=== PATIENT | male | born 1940 | race Caucasian/White ===

== ENCOUNTER 2017-06-19 05:57 | Inpatient (IN) | payer MEDICARE ==
[~2017-06-19] VITALS: Ht 182.9 cm; Wt 81.0 kg
[2017-06-19] MEDS ORDERED: ALBUTEROL SULF 2.5 MG/0.5ML(0.5%) NEB SOLN HHN STA (06:08)
[2017-06-19] MEDS ORDERED: IPRATROPIUM BROM 0.5 MG/2.5ML INH SOL NEB ONE (06:15)
[2017-06-19] MEDS ORDERED: methylPREDNISolone SOD SUCC 125 MG/2 ML VL IV ONE (06:45)
[2017-06-19 06:56] LABS: Basophils # (auto) 0.1 uL; Mean Corpuscular Volume 102.2 fL (80.0-100.0); Monocytes # (auto) 1.4 uL; Red Cell Distribution Width 16.1 % (11.8-14.3)
[2017-06-19 06:58] LABS: Basophils % (auto) 0.6 % (0.0-2.0); Eosinophils # (auto) 0 uL; Eosinophils % (auto) 0.2 % (0.0-7.0); Hematocrit 48.5 % (41.0-53.0); Hemoglobin 15.5 g/dL (13.5-17.5); Lymphocytes # (auto) 0.5 uL; Mean Corpuscular Hemoglobin 32.6 pg (28.0-32.0); Mean Corpuscular Hgb Conc. 31.9 g/dL (32.0-36.0); Monocytes % (auto) 7.6 % (0.0-12.0); Neutrophils % (auto) 88.6 % (37.0-80.0); Nucleated Red Blood Cells % 0.1 %; Platelet Count (auto) 228 10^3/uL (140-450); Red Blood Cells 4.74 10^6/uL (4.5-5.90)
[2017-06-19 07:29] LABS: Albumin 3.2 g/dL (3.4-5.0); Calcium 8.3 mg/dL (8.5-10.1); Potassium 5.1 mmol/L (3.5-5.1)
[2017-06-19 07:34] LABS: Bilirubin, Total 0.5 mg/dL (0.2-1.0); Total Protein 8.3 g/dL (6.4-8.2)
[2017-06-19] MEDS ORDERED: LACTULOSE 20Gm/30ML SOLN PO PRN (08:45)
[2017-06-19] MEDS ORDERED: AZITHROMYCIN 500MG/ 250ML 250 ML IV ONE (08:45)
[2017-06-19] MEDS ORDERED: NITROGLYCERIN 0.4 MG SL TAB SL PRN (08:45)
[2017-06-19] MEDS ORDERED: ASPirin 81 mg TAB PO ONE (08:45)
[2017-06-19] MEDS ORDERED: FUROSEMIDE 40 MG/4 ML VIAL IV ONE (08:45)
[2017-06-19] MEDS ORDERED: cefTRIAXone 1GM/10ml IVPUSH 10 ML IV ONE (08:45)
[2017-06-19] MEDS ORDERED: MORPHINE SULF INJ 2 MG/ML SYRINGE 1ML IV PRN (08:45)
[2017-06-19 09:33] LABS: Cholesterol 117 mg/dL (< 200); HDL Cholesterol 57 mg/dL (40-59); LDL Cholesterol 64 mg/dL (< 100); Triglycerides 69 mg/dL (< 150)
[2017-06-19] MEDS: IPRATROPIUM BROM 0.5 MG/2.5ML INH SOL NEB SCH ×4 (09:57→22:21)
[2017-06-19] MEDS: ALBUTEROL SULF 2.5 MG/0.5ML(0.5%) NEB SOLN NEB SCH ×2 (09:57→13:39)
[2017-06-19] MEDS ORDERED: ENALAPRIL MALEATE 10 MG TAB PO SCH (10:00)
[2017-06-19] MEDS ORDERED: METOPROLOL TARTRATE 25 MG TAB PO SCH (10:00)
[2017-06-19] MEDS: PANTOPRAZOLE 40 MG/10 ML VIAL IV SCH (10:13)
[2017-06-19] MEDS ORDERED: FUROSEMIDE 100 MG/10ML VIAL IV ONE (11:30)
[2017-06-19] MEDS: ENOXAPARIN SOD 30 MG/0.3 ML SYRINGE SC SCH (12:47)
[2017-06-19] MEDS ORDERED: METOLAZONE 5 MG TAB PO ONE (14:15)
[2017-06-19 14:18] VITALS: BP 158/108
[2017-06-19] MEDS ORDERED: MORPHINE SULFATE 4 MG/ML SYR/VIAL ONE (14:37)
[2017-06-19] MEDS ORDERED: ONDANSETRON HCL 4 MG/2 ML VIAL ONE (14:38)
[2017-06-19] MEDS ORDERED: LIDOCAINE 2% JELLY 11ml (GLYDO) ONE ×2 (14:48→15:02)
[2017-06-19] MEDS: SODIUM CHLOR 0.9% PF (SALINE LOCK) 10ML VIAL IV SCH ×2 (15:59→22:01)
[2017-06-19] MEDS ORDERED: SODIUM BICARBONATE 8.4 % INJ 50ML VIAL IV ONE (16:30)
[2017-06-19] MEDS ORDERED: HALOPERIDOL LACTATE 5 MG/ML INJ VIAL ONE (17:00)
[2017-06-19] MEDS ORDERED: HALOPERIDOL LACTATE 5 MG/ML INJ VIAL IM ONE (17:15)
[2017-06-19] MEDS ORDERED: methylPREDNISolone SOD SUCC 40 MG/ML VL IV SCH (19:00)
[2017-06-19] MEDS ORDERED: SUCCINYLCHOLINE CHLORIDE 20 MG/ML 10ML VIAL IV ONE ×2 (19:03→19:15)
[2017-06-19] MEDS ORDERED: ETOMIDATE (2MG/ML) 20ML VIAL IV ONE ×2 (19:03→19:15)
[2017-06-19] MEDS: MIDAZOLAM DRIP 50 mg/50mL 50 ML IV SCH ×2 (19:38→22:41)
[2017-06-19 19:45] VITALS: BP 147/122
[2017-06-19 20:02] VITALS: BP 97/69
[2017-06-19 21:48] VITALS: BP 109/75
[2017-06-19] MEDS: ATORVASTATIN 20 MG TAB PO SCH (22:00)
[2017-06-20] VITALS (19 sets, daily range): BP systolic 94–139; BP diastolic 63–93
[2017-06-20] MEDS: IPRATROPIUM BROM 0.5 MG/2.5ML INH SOL NEB SCH ×6 (02:17→22:00)
[2017-06-20 05:16] LABS: Basophils # (auto) 0 uL; Eosinophils # (auto) 0 uL; Hematocrit 41.4 % (41.0-53.0); Hemoglobin 13.5 g/dL (13.5-17.5); Lymphocytes # (auto) 0.5 uL; Lymphocytes % (auto) 3.4 % (10.0-50.0); Mean Corpuscular Hemoglobin 32.4 pg (28.0-32.0); Mean Corpuscular Hgb Conc. 32.6 g/dL (32.0-36.0); Mean Corpuscular Volume 99.3 fL (80.0-100.0); Monocytes # (auto) 1.6 uL; Neutrophils # (auto) 13.5 uL; Neutrophils % (auto) 86.6 % (37.0-80.0); Nucleated Red Blood Cells % 0.2 %; Platelet Count (auto) 195 10^3/uL (140-450); Red Blood Cells 4.17 10^6/uL (4.5-5.90); Red Cell Distribution Width 15.6 % (11.8-14.3); White Blood Cell 15.7 10^3/uL (4.4-10.8)
[2017-06-20] MEDS: SODIUM CHLOR 0.9% PF (SALINE LOCK) 10ML VIAL IV SCH ×3 (05:34→22:15)
[2017-06-20 05:37] LABS: Albumin 2.5 g/dL (3.4-5.0); Bilirubin, Total 0.7 mg/dL (0.2-1.0); Calcium 7.7 mg/dL (8.5-10.1); Potassium 4.5 mmol/L (3.5-5.1); Total Protein 6.6 g/dL (6.4-8.2)
[2017-06-20] MEDS: AZITHROMYCIN 500MG/ 250ML 250 ML IV SCH (09:44)
[2017-06-20] MEDS: PANTOPRAZOLE 40 MG/10 ML VIAL IV SCH (09:44)
[2017-06-20] MEDS: cefTRIAXone 1GM/10ml IVPUSH 10 ML IV SCH (09:44)
[2017-06-20] MEDS: ENOXAPARIN SOD 30 MG/0.3 ML SYRINGE SC SCH (09:44)
[2017-06-20] MEDS: ASPirin 81 mg TAB PO SCH (09:44)
[2017-06-20] MEDS ORDERED: LEVOTHYROXINE SODIUM 25 MCG TAB NG ONE (11:30)
[2017-06-20] MEDS ORDERED: FUROSEMIDE 100 MG/10ML VIAL IV ONE (11:45)
[2017-06-20] MEDS: PROPOFOL 100 ML IV SCH (21:58)
[2017-06-20] MEDS: ATORVASTATIN 20 MG TAB PO SCH (23:00)
[2017-06-20] MEDS: MIDAZOLAM DRIP 50 mg/50mL 50 ML IV SCH (23:45)
[2017-06-21] VITALS (102 sets, daily range): BP systolic 83–141; BP diastolic 40–93
[2017-06-21] MEDS: IPRATROPIUM BROM 0.5 MG/2.5ML INH SOL NEB SCH ×6 (02:17→22:43)
[2017-06-21] MEDS: MIDAZOLAM DRIP 50 mg/50mL 50 ML IV SCH ×2 (03:10→16:42)
[2017-06-21 04:45] LABS: Basophils # (auto) 0.1 uL; Basophils % (auto) 0.4 % (0.0-2.0); Eosinophils # (auto) 0 uL; Eosinophils % (auto) 0.1 % (0.0-7.0); Hematocrit 46.2 % (41.0-53.0); Hemoglobin 15.6 g/dL (13.5-17.5); Lymphocytes # (auto) 0.7 uL; Lymphocytes % (auto) 4.7 % (10.0-50.0); Mean Corpuscular Hemoglobin 33.3 pg (28.0-32.0); Mean Corpuscular Hgb Conc. 33.7 g/dL (32.0-36.0); Mean Corpuscular Volume 98.8 fL (80.0-100.0); Monocytes # (auto) 1.6 uL; Monocytes % (auto) 10.2 % (0.0-12.0); Neutrophils # (auto) 13.2 uL; Neutrophils % (auto) 84.6 % (37.0-80.0); Nucleated Red Blood Cells % 0.1 %; Platelet Count (auto) 206 10^3/uL (140-450); Red Blood Cells 4.68 10^6/uL (4.5-5.90); Red Cell Distribution Width 15.2 % (11.8-14.3); White Blood Cell 15.6 10^3/uL (4.4-10.8)
[2017-06-21 04:59] LABS: Albumin 2.6 g/dL (3.4-5.0); BUN/Creatinine Ratio 27.3; Bilirubin, Total 0.8 mg/dL (0.2-1.0); Calcium 8.2 mg/dL (8.5-10.1); Potassium 3.9 mmol/L (3.5-5.1); Total Protein 7.1 g/dL (6.4-8.2)
[2017-06-21] MEDS: LEVOTHYROXINE SODIUM 25 MCG TAB NG SCH (06:24)
[2017-06-21] MEDS: SODIUM CHLOR 0.9% PF (SALINE LOCK) 10ML VIAL IV SCH ×3 (06:24→22:03)
[2017-06-21] MEDS: cefTRIAXone 1GM/10ml IVPUSH 10 ML IV SCH (09:51)
[2017-06-21] MEDS: PANTOPRAZOLE 40 MG/10 ML VIAL IV SCH (09:52)
[2017-06-21] MEDS: AZITHROMYCIN 500MG/ 250ML 250 ML IV SCH (09:52)
[2017-06-21] MEDS: ENOXAPARIN SOD 30 MG/0.3 ML SYRINGE SC SCH (09:53)
[2017-06-21] MEDS: ASPirin 81 mg TAB PO SCH (10:00)
[2017-06-21] MEDS ORDERED: FUROSEMIDE 100 MG/10ML VIAL IV SCH (10:00)
[2017-06-21] MEDS: NOREPINEPHRINE 8 MG/250ML KIT 250 ML IV SCH (16:00)
[2017-06-21 20:34] LABS: BUN/Creatinine Ratio 28.3; Calcium 8.4 mg/dL (8.5-10.1); Potassium 3.7 mmol/L (3.5-5.1)
[2017-06-21] MEDS: PROPOFOL 100 ML IV SCH ×2 (22:02→23:34)
[2017-06-21] MEDS: ATORVASTATIN 20 MG TAB PO SCH (22:03)
[2017-06-22] VITALS (106 sets, daily range): BP systolic 82–151; BP diastolic 46–87
[2017-06-22] MEDS: IPRATROPIUM BROM 0.5 MG/2.5ML INH SOL NEB SCH ×6 (02:22→22:02)
[2017-06-22 04:14] LABS: Basophils # (auto) 0.1 uL; Basophils % (auto) 0.4 % (0.0-2.0); Eosinophils # (auto) 0 uL; Eosinophils % (auto) 0.2 % (0.0-7.0); Hematocrit 47.8 % (41.0-53.0); Hemoglobin 15.8 g/dL (13.5-17.5); Lymphocytes % (auto) 7.6 % (10.0-50.0); Mean Corpuscular Hemoglobin 32.5 pg (28.0-32.0); Mean Corpuscular Hgb Conc. 33.1 g/dL (32.0-36.0); Mean Corpuscular Volume 98.1 fL (80.0-100.0); Monocytes # (auto) 1.6 uL; Monocytes % (auto) 12.6 % (0.0-12.0); Neutrophils # (auto) 10.4 uL; Neutrophils % (auto) 79.2 % (37.0-80.0); Nucleated Red Blood Cells % 0.1 %; Platelet Count (auto) 217 10^3/uL (140-450); Red Blood Cells 4.87 10^6/uL (4.5-5.90); Red Cell Distribution Width 15.5 % (11.8-14.3); White Blood Cell 13.1 10^3/uL (4.4-10.8)
[2017-06-22 04:32] LABS: Albumin 2.3 g/dL (3.4-5.0); BUN/Creatinine Ratio 28.4; Calcium 8.3 mg/dL (8.5-10.1); Potassium 3.5 mmol/L (3.5-5.1)
[2017-06-22 04:34] LABS: Bilirubin, Total 0.8 mg/dL (0.2-1.0); Total Protein 7.2 g/dL (6.4-8.2)
[2017-06-22] MEDS: SODIUM CHLOR 0.9% PF (SALINE LOCK) 10ML VIAL IV SCH ×3 (06:12→21:45)
[2017-06-22] MEDS: LEVOTHYROXINE SODIUM 25 MCG TAB NG SCH (07:03)
[2017-06-22] MEDS: cefTRIAXone 1GM/10ml IVPUSH 10 ML IV SCH (09:17)
[2017-06-22] MEDS ORDERED: FUROSEMIDE 20 MG/2 ML VIAL IV SCH (10:00)
[2017-06-22] MEDS: ASPirin 81 mg TAB PO SCH (10:00)
[2017-06-22] MEDS: AZITHROMYCIN 500MG/ 250ML 250 ML IV SCH (10:23)
[2017-06-22] MEDS: ENOXAPARIN SOD 30 MG/0.3 ML SYRINGE SC SCH (10:24)
[2017-06-22] MEDS: PANTOPRAZOLE 40 MG/10 ML VIAL IV SCH (10:24)
[2017-06-22 10:39] LABS: Urine Bacteria NONE SEEN /hpf (None Seen); Urine Blood 2+ /uL (Negative); Urine Specific Gravity 1.023 (1.001-1.035); Urine WBC 4 /hpf (0 - 3)
[2017-06-22] MEDS: MIDAZOLAM DRIP 50 mg/50mL 50 ML IV SCH (12:00)
[2017-06-22] MEDS: METOCLOPRAMIDE HCL 5MG/ml INJ 2ml VIAL IV SCH ×2 (13:39→21:46)
[2017-06-22] MEDS: NOREPINEPHRINE 8 MG/250ML KIT 250 ML IV SCH (15:55)
[2017-06-22] MEDS ORDERED: LEVOFLOXACIN 500MG 100 ML IV ONE (17:15)
[2017-06-22] MEDS: ATORVASTATIN 20 MG TAB PO SCH (21:45)
[2017-06-23] VITALS (91 sets, daily range): BP systolic 89–144; BP diastolic 53–88
[2017-06-23] MEDS: MIDAZOLAM DRIP 50 mg/50mL 50 ML IV SCH ×3 (00:56→15:00)
[2017-06-23] MEDS: IPRATROPIUM BROM 0.5 MG/2.5ML INH SOL NEB SCH ×6 (02:13→22:01)
[2017-06-23 03:56] LABS: Basophils # (auto) 0 uL; Basophils % (auto) 0.3 % (0.0-2.0); Eosinophils # (auto) 0 uL; Eosinophils % (auto) 0.3 % (0.0-7.0); Hematocrit 48.6 % (41.0-53.0); Hemoglobin 16.2 g/dL (13.5-17.5); Lymphocytes # (auto) 0.8 uL; Lymphocytes % (auto) 6.5 % (10.0-50.0); Mean Corpuscular Hemoglobin 32.6 pg (28.0-32.0); Mean Corpuscular Hgb Conc. 33.4 g/dL (32.0-36.0); Mean Corpuscular Volume 97.8 fL (80.0-100.0); Monocytes # (auto) 1.7 uL; Monocytes % (auto) 12.7 % (0.0-12.0); Neutrophils # (auto) 10.4 uL; Neutrophils % (auto) 80.2 % (37.0-80.0); Nucleated Red Blood Cells % 0.1 %; Platelet Count (auto) 208 10^3/uL (140-450); Red Blood Cells 4.97 10^6/uL (4.5-5.90); Red Cell Distribution Width 15.8 % (11.8-14.3)
[2017-06-23 04:08] LABS: Albumin 2.3 g/dL (3.4-5.0); Calcium 8.5 mg/dL (8.5-10.1); Potassium 3.7 mmol/L (3.5-5.1)
[2017-06-23 04:11] LABS: BUN/Creatinine Ratio 30.2
[2017-06-23 04:12] LABS: Bilirubin, Total 0.9 mg/dL (0.2-1.0); Total Protein 7.4 g/dL (6.4-8.2)
[2017-06-23] MEDS: SODIUM CHLOR 0.9% PF (SALINE LOCK) 10ML VIAL IV SCH ×3 (05:28→22:11)
[2017-06-23] MEDS: METOCLOPRAMIDE HCL 5MG/ml INJ 2ml VIAL IV SCH ×3 (05:28→22:11)
[2017-06-23] MEDS: LEVOTHYROXINE SODIUM 25 MCG TAB NG SCH (05:29)
[2017-06-23] MEDS: ASPirin 81 mg TAB PO SCH (09:39)
[2017-06-23] MEDS: LEVOFLOXACIN 250MG 50 ML IV SCH (09:40)
[2017-06-23] MEDS: ENOXAPARIN SOD 30 MG/0.3 ML SYRINGE SC SCH (09:40)
[2017-06-23] MEDS: PANTOPRAZOLE 40 MG/10 ML VIAL IV SCH (09:40)
[2017-06-23] MEDS: SODIUM CHLORIDE 0.9% 1,000 ML IV SCH (11:09)
[2017-06-23] MEDS: NOREPINEPHRINE 8 MG/250ML KIT 250 ML IV SCH (15:17)
[2017-06-23] MEDS: ATORVASTATIN 20 MG TAB PO SCH (22:11)
[2017-06-24] VITALS (105 sets, daily range): BP systolic 87–166; BP diastolic 42–113
[2017-06-24] MEDS: SODIUM CHLORIDE 0.9% 1,000 ML IV SCH ×2 (01:22→14:47)
[2017-06-24] MEDS: IPRATROPIUM BROM 0.5 MG/2.5ML INH SOL NEB SCH ×6 (02:10→22:36)
[2017-06-24 04:02] LABS: Basophils # (auto) 0 uL; Basophils % (auto) 0.3 % (0.0-2.0); Eosinophils # (auto) 0.1 uL; Eosinophils % (auto) 0.8 % (0.0-7.0); Hematocrit 46.6 % (41.0-53.0); Hemoglobin 15.7 g/dL (13.5-17.5); Lymphocytes # (auto) 0.9 uL; Lymphocytes % (auto) 7.6 % (10.0-50.0); Mean Corpuscular Hgb Conc. 33.6 g/dL (32.0-36.0); Mean Corpuscular Volume 98.2 fL (80.0-100.0); Monocytes # (auto) 1.4 uL; Monocytes % (auto) 11.5 % (0.0-12.0); Neutrophils # (auto) 9.7 uL; Neutrophils % (auto) 79.8 % (37.0-80.0); Nucleated Red Blood Cells % 0.1 %; Platelet Count (auto) 197 10^3/uL (140-450); Red Blood Cells 4.75 10^6/uL (4.5-5.90); Red Cell Distribution Width 15.6 % (11.8-14.3); White Blood Cell 12.1 10^3/uL (4.4-10.8)
[2017-06-24 04:42] LABS: Albumin 2.2 g/dL (3.4-5.0); BUN/Creatinine Ratio 32.8; Calcium 8.3 mg/dL (8.5-10.1); Potassium 3.7 mmol/L (3.5-5.1)
[2017-06-24] MEDS: SODIUM CHLOR 0.9% PF (SALINE LOCK) 10ML VIAL IV SCH ×3 (06:14→22:15)
[2017-06-24] MEDS: METOCLOPRAMIDE HCL 5MG/ml INJ 2ml VIAL IV SCH ×3 (06:23→22:15)
[2017-06-24] MEDS: LEVOTHYROXINE SODIUM 25 MCG TAB NG SCH (06:40)
[2017-06-24] MEDS: LEVOFLOXACIN 250MG 50 ML IV SCH (10:08)
[2017-06-24] MEDS: ASPirin 81 mg TAB PO SCH (10:09)
[2017-06-24] MEDS: ENOXAPARIN SOD 30 MG/0.3 ML SYRINGE SC SCH (10:09)
[2017-06-24] MEDS: PANTOPRAZOLE 40 MG/10 ML VIAL IV SCH (10:10)
[2017-06-24] MEDS: MIDAZOLAM DRIP 50 mg/50mL 50 ML IV SCH ×2 (10:11→19:33)
[2017-06-24] MEDS: NOREPINEPHRINE 8 MG/250ML KIT 250 ML IV SCH (16:00)
[2017-06-24] MEDS: ATORVASTATIN 20 MG TAB PO SCH (22:15)
[2017-06-25] VITALS (104 sets, daily range): BP systolic 80–169; BP diastolic 49–99
[2017-06-25] MEDS: IPRATROPIUM BROM 0.5 MG/2.5ML INH SOL NEB SCH ×6 (02:18→22:26)
[2017-06-25 03:30] LABS: Basophils # (auto) 0.1 uL; Basophils % (auto) 0.5 % (0.0-2.0); Eosinophils # (auto) 0.2 uL; Eosinophils % (auto) 2.2 % (0.0-7.0); Hematocrit 44.5 % (41.0-53.0); Hemoglobin 14.6 g/dL (13.5-17.5); Lymphocytes # (auto) 0.8 uL; Lymphocytes % (auto) 7.5 % (10.0-50.0); Mean Corpuscular Hemoglobin 32.8 pg (28.0-32.0); Mean Corpuscular Hgb Conc. 32.8 g/dL (32.0-36.0); Mean Corpuscular Volume 99.8 fL (80.0-100.0); Monocytes % (auto) 9.3 % (0.0-12.0); Neutrophils # (auto) 8.5 uL; Neutrophils % (auto) 80.5 % (37.0-80.0); Platelet Count (auto) 177 10^3/uL (140-450); Red Blood Cells 4.46 10^6/uL (4.5-5.90); Red Cell Distribution Width 15.2 % (11.8-14.3); White Blood Cell 10.6 10^3/uL (4.4-10.8)
[2017-06-25 03:57] LABS: Albumin 2.2 g/dL (3.4-5.0); BUN/Creatinine Ratio 35.5; Bilirubin, Total 0.9 mg/dL (0.2-1.0); Calcium 8.1 mg/dL (8.5-10.1); Potassium 3.6 mmol/L (3.5-5.1); Total Protein 6.9 g/dL (6.4-8.2)
[2017-06-25] MEDS: MIDAZOLAM DRIP 50 mg/50mL 50 ML IV SCH ×2 (04:02→09:30)
[2017-06-25] MEDS: SODIUM CHLORIDE 0.9% 1,000 ML IV SCH (05:54)
[2017-06-25] MEDS: METOCLOPRAMIDE HCL 5MG/ml INJ 2ml VIAL IV SCH ×3 (06:19→22:29)
[2017-06-25] MEDS: LEVOTHYROXINE SODIUM 25 MCG TAB NG SCH (06:20)
[2017-06-25] MEDS: SODIUM CHLOR 0.9% PF (SALINE LOCK) 10ML VIAL IV SCH ×3 (06:20→22:00)
[2017-06-25] MEDS: LEVOFLOXACIN 250MG 50 ML IV SCH (09:18)
[2017-06-25] MEDS: PANTOPRAZOLE 40 MG/10 ML VIAL IV SCH (09:23)
[2017-06-25] MEDS: ASPirin 81 mg TAB PO SCH (09:25)
[2017-06-25] MEDS: ENOXAPARIN SOD 30 MG/0.3 ML SYRINGE SC SCH (09:26)
[2017-06-25] MEDS ORDERED: POTASSIUM CHL 20 Meq TABLET PO ONE (14:15)
[2017-06-25] MEDS: NOREPINEPHRINE 8 MG/250ML KIT 250 ML IV SCH (16:00)
[2017-06-25] MEDS ORDERED: MIDAZOLAM DRIP 100 mg/100mL NS 100 ML IV ONE (16:30)
[2017-06-25] MEDS ORDERED: POTASSIUM CHL 10% (20 MEQ/15ML) 15ml ORAL SOLN GT ONE (17:15)
[2017-06-25] MEDS ORDERED: MIDAZOLAM DRIP 100 mg/100mL NS 100 ML IV SCH (18:15)
[2017-06-25] MEDS: ATORVASTATIN 20 MG TAB PO SCH (22:29)
[2017-06-26] VITALS (102 sets, daily range): BP systolic 75–166; BP diastolic 43–100
[2017-06-26] MEDS: IPRATROPIUM BROM 0.5 MG/2.5ML INH SOL NEB SCH ×6 (02:16→22:10)
[2017-06-26 04:34] LABS: BUN/Creatinine Ratio 32.8; Calcium 8.5 mg/dL (8.5-10.1); Potassium 4.3 mmol/L (3.5-5.1)
[2017-06-26] MEDS: SODIUM CHLOR 0.9% PF (SALINE LOCK) 10ML VIAL IV SCH ×3 (05:57→22:03)
[2017-06-26] MEDS: METOCLOPRAMIDE HCL 5MG/ml INJ 2ml VIAL IV SCH ×2 (05:57→16:00)
[2017-06-26] MEDS: LEVOTHYROXINE SODIUM 25 MCG TAB NG SCH (06:32)
[2017-06-26] MEDS: NOREPINEPHRINE 8 MG/250ML KIT 250 ML IV SCH (08:46)
[2017-06-26] MEDS: ASPirin 81 mg TAB PO SCH (09:56)
[2017-06-26] MEDS: LEVOFLOXACIN 250MG 50 ML IV SCH (09:56)
[2017-06-26] MEDS: PANTOPRAZOLE 40 MG/10 ML VIAL IV SCH (09:56)
[2017-06-26] MEDS: ENOXAPARIN SOD 30 MG/0.3 ML SYRINGE SC SCH (09:57)
[2017-06-26] MEDS: MIDAZOLAM HCL 1MG/1ML-2 ML VIAL IV PRN ×3 (16:01→20:17)
[2017-06-26] MEDS ORDERED: cefTRIAXone 1GM/10ml IVPUSH 10 ML IV ONE (16:30)
[2017-06-26] MEDS ORDERED: Fibersource Hn 1 Liter GT SCH (16:30)
[2017-06-26] MEDS ORDERED: fentaNYL Drip 2500mCg/250mlNS 250 ML IV ONE (18:53)
[2017-06-26] MEDS: fentaNYL Drip 2500mCg/250mlNS 250 ML IV SCH (19:00)
[2017-06-26] MEDS: ATORVASTATIN 20 MG TAB PO SCH (22:04)
[2017-06-26] MEDS: NYSTATIN (MOUTH-THROAT) 500,000 UNITS/5 ML SUSP MT SCH (22:07)
[2017-06-27] VITALS (50 sets, daily range): BP systolic 81–134; BP diastolic 35–79
[2017-06-27] MEDS: IPRATROPIUM BROM 0.5 MG/2.5ML INH SOL NEB SCH ×6 (02:31→22:24)
[2017-06-27 04:38] LABS: Basophils # (auto) 0.1 uL; Basophils % (auto) 0.7 % (0.0-2.0); Eosinophils # (auto) 0.3 uL; Eosinophils % (auto) 3.2 % (0.0-7.0); Hematocrit 46.4 % (41.0-53.0); Hemoglobin 15.4 g/dL (13.5-17.5); Lymphocytes % (auto) 8.9 % (10.0-50.0); Mean Corpuscular Hemoglobin 32.8 pg (28.0-32.0); Mean Corpuscular Hgb Conc. 33.2 g/dL (32.0-36.0); Mean Corpuscular Volume 98.9 fL (80.0-100.0); Monocytes # (auto) 1.2 uL; Monocytes % (auto) 10.8 % (0.0-12.0); Neutrophils # (auto) 8.3 uL; Neutrophils % (auto) 76.4 % (37.0-80.0); Nucleated Red Blood Cells % 0.1 %; Platelet Count (auto) 178 10^3/uL (140-450); Red Blood Cells 4.69 10^6/uL (4.5-5.90); Red Cell Distribution Width 15.4 % (11.8-14.3); White Blood Cell 10.9 10^3/uL (4.4-10.8)
[2017-06-27 04:51] LABS: BUN/Creatinine Ratio 33.5; Calcium 8.5 mg/dL (8.5-10.1); Potassium 4.2 mmol/L (3.5-5.1)
[2017-06-27] MEDS: SODIUM CHLOR 0.9% PF (SALINE LOCK) 10ML VIAL IV SCH ×3 (06:04→22:03)
[2017-06-27] MEDS: NYSTATIN (MOUTH-THROAT) 500,000 UNITS/5 ML SUSP MT SCH ×5 (06:10→22:03)
[2017-06-27] MEDS: LEVOTHYROXINE SODIUM 25 MCG TAB NG SCH (06:10)
[2017-06-27] MEDS: ASPirin 81 mg TAB PO SCH (09:55)
[2017-06-27] MEDS: PANTOPRAZOLE 40 MG/10 ML VIAL IV SCH (09:55)
[2017-06-27] MEDS: cefTRIAXone 1GM/10ml IVPUSH 10 ML IV SCH (09:55)
[2017-06-27] MEDS: ENOXAPARIN SOD 30 MG/0.3 ML SYRINGE SC SCH (09:56)
[2017-06-27] MEDS: MIDAZOLAM HCL 1MG/1ML-2 ML VIAL IV PRN ×4 (10:00→22:02)
[2017-06-27] MEDS ORDERED: MORPHINE SULF INJ 2 MG/ML SYRINGE 1ML IV PRN (14:30)
[2017-06-27] MEDS ORDERED: methylPREDNISolone SOD SUCC 40 MG/ML VL IV ONE (14:30)
[2017-06-27] MEDS: NOREPINEPHRINE 8 MG/250ML KIT 250 ML IV SCH (16:00)
[2017-06-27] MEDS: fentaNYL Drip 2500mCg/250mlNS 250 ML IV SCH (18:00)
[2017-06-27] MEDS: methylPREDNISolone SOD SUCC 40 MG/ML VL IV SCH (22:03)
[2017-06-27] MEDS: ATORVASTATIN 20 MG TAB PO SCH (22:03)
[2017-06-27] MEDS ORDERED: MIDAZOLAM DRIP 100 mg/100mL NS 100 ML IV ONE (22:18)
[2017-06-27] MEDS: MIDAZOLAM DRIP 100 mg/100mL NS 100 ML IV SCH (22:40)
[2017-06-28] VITALS (96 sets, daily range): BP systolic 87–145; BP diastolic 39–87
[2017-06-28 04:46] LABS: Basophils # (auto) 0 uL; Basophils % (auto) 0.2 % (0.0-2.0); Eosinophils # (auto) 0 uL; Eosinophils % (auto) 0.1 % (0.0-7.0); Hemoglobin 15.9 g/dL (13.5-17.5); Lymphocytes # (auto) 0.3 uL; Lymphocytes % (auto) 4.1 % (10.0-50.0); Mean Corpuscular Hemoglobin 33.1 pg (28.0-32.0); Mean Corpuscular Hgb Conc. 33.1 g/dL (32.0-36.0); Mean Corpuscular Volume 99.8 fL (80.0-100.0); Monocytes # (auto) 0.1 uL; Neutrophils # (auto) 7.2 uL; Neutrophils % (auto) 94.6 % (37.0-80.0); Nucleated Red Blood Cells % 0.1 %; Platelet Count (auto) 185 10^3/uL (140-450); Red Blood Cells 4.81 10^6/uL (4.5-5.90); Red Cell Distribution Width 15.1 % (11.8-14.3); White Blood Cell 7.6 10^3/uL (4.4-10.8)
[2017-06-28 05:07] LABS: BUN/Creatinine Ratio 36.3; Calcium 8.6 mg/dL (8.5-10.1)
[2017-06-28] MEDS: SODIUM CHLOR 0.9% PF (SALINE LOCK) 10ML VIAL IV SCH ×3 (05:31→22:00)
[2017-06-28] MEDS: fentaNYL Drip 2500mCg/250mlNS 250 ML IV SCH (06:03)
[2017-06-28] MEDS: LEVOTHYROXINE SODIUM 25 MCG TAB NG SCH (06:03)
[2017-06-28] MEDS: NYSTATIN (MOUTH-THROAT) 500,000 UNITS/5 ML SUSP MT SCH ×4 (06:03→22:00)
[2017-06-28] MEDS: IPRATROPIUM BROM 0.5 MG/2.5ML INH SOL NEB SCH ×5 (06:36→22:10)
[2017-06-28] MEDS: methylPREDNISolone SOD SUCC 40 MG/ML VL IV SCH ×2 (09:54→22:00)
[2017-06-28] MEDS: ASPirin 81 mg TAB PO SCH (09:54)
[2017-06-28] MEDS: PANTOPRAZOLE 40 MG/10 ML VIAL IV SCH (09:55)
[2017-06-28] MEDS: cefTRIAXone 1GM/10ml IVPUSH 10 ML IV SCH (09:57)
[2017-06-28] MEDS: ENOXAPARIN SOD 30 MG/0.3 ML SYRINGE SC SCH (09:57)
[2017-06-28] MEDS: NOREPINEPHRINE 8 MG/250ML KIT 250 ML IV SCH (16:00)
[2017-06-28] MEDS ORDERED: D5W 5% 1,000 ML IV ONE (16:15)
[2017-06-28] MEDS: ATORVASTATIN 20 MG TAB PO SCH (22:01)
[2017-06-29] VITALS (63 sets, daily range): BP systolic 88–166; BP diastolic 39–103
[2017-06-29] MEDS: IPRATROPIUM BROM 0.5 MG/2.5ML INH SOL NEB SCH ×6 (02:49→22:00)
[2017-06-29 04:18] LABS: Potassium 4.7 mmol/L (3.5-5.1)
[2017-06-29 04:24] LABS: Albumin 2.3 g/dL (3.4-5.0); BUN/Creatinine Ratio 40.1; Calcium 8.3 mg/dL (8.5-10.1); Total Protein 7.1 g/dL (6.4-8.2)
[2017-06-29 04:34] LABS: Bilirubin, Total 0.4 mg/dL (0.2-1.0)
[2017-06-29] MEDS: MIDAZOLAM DRIP 100 mg/100mL NS 100 ML IV SCH (06:00)
[2017-06-29] MEDS: SODIUM CHLOR 0.9% PF (SALINE LOCK) 10ML VIAL IV SCH ×3 (06:18→20:52)
[2017-06-29] MEDS: NYSTATIN (MOUTH-THROAT) 500,000 UNITS/5 ML SUSP MT SCH ×4 (06:19→20:52)
[2017-06-29] MEDS: LEVOTHYROXINE SODIUM 25 MCG TAB NG SCH (06:41)
[2017-06-29] MEDS: cefTRIAXone 1GM/10ml IVPUSH 10 ML IV SCH (08:52)
[2017-06-29] MEDS: ASPirin 81 mg TAB PO SCH (09:44)
[2017-06-29] MEDS: PANTOPRAZOLE 40 MG/10 ML VIAL IV SCH (09:44)
[2017-06-29] MEDS: methylPREDNISolone SOD SUCC 40 MG/ML VL IV SCH ×2 (09:44→20:52)
[2017-06-29] MEDS: ENOXAPARIN SOD 30 MG/0.3 ML SYRINGE SC SCH (09:44)
[2017-06-29] MEDS: LINEZOLID 600MG/300ML 300 ML IV SCH (13:50)
[2017-06-29] MEDS: HALOPERIDOL LACTATE 5 MG/ML INJ VIAL IM PRN (14:48)
[2017-06-29] MEDS: fentaNYL Drip 2500mCg/250mlNS 250 ML IV SCH (18:05)
[2017-06-29 18:55] LABS: BUN/Creatinine Ratio 40.3; Calcium 8.5 mg/dL (8.5-10.1); Potassium 4.2 mmol/L (3.5-5.1)
[2017-06-29] MEDS: ATORVASTATIN 20 MG TAB PO SCH (20:52)
[2017-06-29] MEDS ORDERED: METOPROLOL TARTRATE 1MG/1ML-5ML VIAL IV ONE ×2 (22:15)
[2017-06-30] VITALS (29 sets, daily range): BP systolic 127–172; BP diastolic 62–112
[2017-06-30] MEDS: IPRATROPIUM BROM 0.5 MG/2.5ML INH SOL NEB SCH ×6 (02:29→22:28)
[2017-06-30] MEDS: LINEZOLID 600MG/300ML 300 ML IV SCH ×2 (03:09→14:47)
[2017-06-30] MEDS ORDERED: METOPROLOL TARTRATE 1MG/1ML-5ML VIAL IV ONE (03:15)
[2017-06-30 04:00] LABS: Basophils # (auto) 0 uL; Basophils % (auto) 0.1 % (0.0-2.0); Eosinophils # (auto) 0 uL; Hematocrit 45.3 % (41.0-53.0); Lymphocytes # (auto) 0.4 uL; Lymphocytes % (auto) 2.6 % (10.0-50.0); Mean Corpuscular Hemoglobin 32.6 pg (28.0-32.0); Mean Corpuscular Hgb Conc. 33.2 g/dL (32.0-36.0); Mean Corpuscular Volume 98.3 fL (80.0-100.0); Monocytes # (auto) 0.3 uL; Monocytes % (auto) 2.3 % (0.0-12.0); Neutrophils # (auto) 14.5 uL; Platelet Count (auto) 190 10^3/uL (140-450); Red Blood Cells 4.61 10^6/uL (4.5-5.90); Red Cell Distribution Width 14.9 % (11.8-14.3); White Blood Cell 15.2 10^3/uL (4.4-10.8)
[2017-06-30 04:08] LABS: BUN/Creatinine Ratio 43.6; Calcium 8.6 mg/dL (8.5-10.1)
[2017-06-30] MEDS: HALOPERIDOL LACTATE 5 MG/ML INJ VIAL IM PRN ×2 (04:08→17:18)
[2017-06-30] MEDS: NYSTATIN (MOUTH-THROAT) 500,000 UNITS/5 ML SUSP MT SCH ×4 (07:51→23:09)
[2017-06-30] MEDS: SODIUM CHLOR 0.9% PF (SALINE LOCK) 10ML VIAL IV SCH ×3 (07:51→23:09)
[2017-06-30] MEDS: LEVOTHYROXINE SODIUM 25 MCG TAB NG SCH (07:51)
[2017-06-30] MEDS ORDERED: LIDOCAINE 2%HCL (LOCAL ANESTH.) INJ 20ML MDV ONE (09:48)
[2017-06-30] MEDS: MIDAZOLAM DRIP 100 mg/100mL NS 100 ML IV SCH (10:25)
[2017-06-30] MEDS: PANTOPRAZOLE 40 MG/10 ML VIAL IV SCH (10:49)
[2017-06-30] MEDS: methylPREDNISolone SOD SUCC 40 MG/ML VL IV SCH ×2 (10:49→23:09)
[2017-06-30] MEDS: ENOXAPARIN SOD 30 MG/0.3 ML SYRINGE SC SCH (10:50)
[2017-06-30] MEDS: cefTRIAXone 1GM/10ml IVPUSH 10 ML IV SCH (10:51)
[2017-06-30] MEDS: ASPirin 81 mg TAB PO SCH (12:00)
[2017-06-30] MEDS ORDERED: LORazepam 2MG/ML-1ML VIAL ONE (13:10)
[2017-06-30] MEDS: LORazepam 2MG/ML-1ML VIAL IV PRN ×2 (13:25→23:10)
[2017-06-30] MEDS ORDERED: LORazepam 2MG/ML-1ML VIAL IM ONE (15:00)
[2017-06-30] MEDS ORDERED: LABETALOL HCL 5 MG/ML ML 20ML VIAL IV PRN ×2 (17:30)
[2017-06-30] MEDS ORDERED: LABETALOL HCL 5 MG/ML ML 20ML VIAL IV ONE (17:35)
[2017-06-30] MEDS: ATORVASTATIN 20 MG TAB PO SCH (23:10)
[2017-07-01] VITALS (10 sets, daily range): BP systolic 124–160; BP diastolic 80–99
[2017-07-01] MEDS: LINEZOLID 600MG/300ML 300 ML IV SCH ×2 (02:00→15:12)
[2017-07-01] MEDS: IPRATROPIUM BROM 0.5 MG/2.5ML INH SOL NEB SCH ×6 (02:29→22:33)
[2017-07-01] MEDS: HALOPERIDOL LACTATE 5 MG/ML INJ VIAL IM PRN ×2 (02:55→11:23)
[2017-07-01 03:54] LABS: Basophils # (auto) 0 uL; Basophils % (auto) 0.1 % (0.0-2.0); Eosinophils # (auto) 0 uL; Hematocrit 48.4 % (41.0-53.0); Hemoglobin 16.1 g/dL (13.5-17.5); Lymphocytes # (auto) 0.2 uL; Lymphocytes % (auto) 2.3 % (10.0-50.0); Mean Corpuscular Hgb Conc. 33.3 g/dL (32.0-36.0); Monocytes # (auto) 0.4 uL; Monocytes % (auto) 3.9 % (0.0-12.0); Neutrophils # (auto) 9.6 uL; Neutrophils % (auto) 93.7 % (37.0-80.0); Platelet Count (auto) 192 10^3/uL (140-450); Red Blood Cells 4.88 10^6/uL (4.5-5.90); Red Cell Distribution Width 14.8 % (11.8-14.3); White Blood Cell 10.2 10^3/uL (4.4-10.8)
[2017-07-01 05:01] LABS: Potassium 3.9 mmol/L (3.5-5.1)
[2017-07-01 05:02] LABS: Calcium 8.8 mg/dL (8.5-10.1)
[2017-07-01] MEDS: LORazepam 2MG/ML-1ML VIAL IV PRN ×3 (05:04→23:01)
[2017-07-01] MEDS: SODIUM CHLOR 0.9% PF (SALINE LOCK) 10ML VIAL IV SCH ×3 (06:00→21:06)
[2017-07-01] MEDS: NYSTATIN (MOUTH-THROAT) 500,000 UNITS/5 ML SUSP MT SCH ×4 (06:00→21:06)
[2017-07-01] MEDS: LEVOTHYROXINE SODIUM 25 MCG TAB NG SCH (07:00)
[2017-07-01] MEDS: cefTRIAXone 1GM/10ml IVPUSH 10 ML IV SCH (09:25)
[2017-07-01] MEDS: methylPREDNISolone SOD SUCC 40 MG/ML VL IV SCH ×2 (10:00→21:06)
[2017-07-01] MEDS: ASPirin 81 mg TAB PO SCH (10:00)
[2017-07-01] MEDS: ENOXAPARIN SOD 30 MG/0.3 ML SYRINGE SC SCH (10:00)
[2017-07-01] MEDS: PANTOPRAZOLE 40 MG/10 ML VIAL IV SCH (10:39)
[2017-07-01] MEDS ORDERED: LACTULOSE 20Gm/30ML SOLN PO PRN (13:45)
[2017-07-01] MEDS ORDERED: NITROGLYCERIN 0.4 MG SL TAB SL PRN (13:45)
[2017-07-01] MEDS: ATORVASTATIN 20 MG TAB PO SCH (21:07)
[2017-07-01] MEDS ORDERED: NICOTINE 14 MG/24HR TOPICAL PATCH TD ONE (21:45)
[2017-07-02] VITALS (7 sets, daily range): BP systolic 115–153; BP diastolic 64–112
[2017-07-02] MEDS ORDERED: TEMAZEPAM 15 MG CAP PO ONE (00:30)
[2017-07-02] MEDS ORDERED: TEMAZEPAM 15 MG CAP ONE (00:31)
[2017-07-02] MEDS: LINEZOLID 600MG/300ML 300 ML IV SCH (02:05)
[2017-07-02] MEDS: IPRATROPIUM BROM 0.5 MG/2.5ML INH SOL NEB SCH ×6 (02:49→21:42)
[2017-07-02 05:52] LABS: Basophils # (auto) 0 uL; Basophils % (auto) 0.1 % (0.0-2.0); Eosinophils # (auto) 0 uL; Hematocrit 49.8 % (41.0-53.0); Hemoglobin 16.6 g/dL (13.5-17.5); Lymphocytes # (auto) 0.4 uL; Lymphocytes % (auto) 3.5 % (10.0-50.0); Mean Corpuscular Hemoglobin 32.8 pg (28.0-32.0); Mean Corpuscular Hgb Conc. 33.3 g/dL (32.0-36.0); Mean Corpuscular Volume 98.4 fL (80.0-100.0); Monocytes # (auto) 0.4 uL; Monocytes % (auto) 4.1 % (0.0-12.0); Neutrophils # (auto) 9.7 uL; Neutrophils % (auto) 92.3 % (37.0-80.0); Nucleated Red Blood Cells % 0.1 %; Platelet Count (auto) 188 10^3/uL (140-450); Red Blood Cells 5.06 10^6/uL (4.5-5.90); Red Cell Distribution Width 15.1 % (11.8-14.3); White Blood Cell 10.5 10^3/uL (4.4-10.8)
[2017-07-02 06:07] LABS: BUN/Creatinine Ratio 31.9; Calcium 8.5 mg/dL (8.5-10.1); Potassium 4.2 mmol/L (3.5-5.1)
[2017-07-02] MEDS: SODIUM CHLOR 0.9% PF (SALINE LOCK) 10ML VIAL IV SCH ×3 (06:12→22:25)
[2017-07-02] MEDS: LEVOTHYROXINE SODIUM 25 MCG TAB NG SCH (06:20)
[2017-07-02] MEDS: NYSTATIN (MOUTH-THROAT) 500,000 UNITS/5 ML SUSP MT SCH ×4 (06:20→22:25)
[2017-07-02] MEDS: cefTRIAXone 1GM/10ml IVPUSH 10 ML IV SCH (09:00)
[2017-07-02] MEDS ORDERED: fentaNYL CITRATE 100 MCG/2 ML VL ONE (09:12)
[2017-07-02] MEDS ORDERED: PROPOFOL 10 MG/ML 20 ML IV ONE (09:12)
[2017-07-02] MEDS: methylPREDNISolone SOD SUCC 40 MG/ML VL IV SCH (09:33)
[2017-07-02] MEDS: ASPirin 81 mg TAB PO SCH (09:34)
[2017-07-02] MEDS: ENOXAPARIN SOD 30 MG/0.3 ML SYRINGE SC SCH (09:35)
[2017-07-02] MEDS: NICOTINE 14 MG/24HR TOPICAL PATCH TD SCH (09:39)
[2017-07-02] MEDS ORDERED: PANTOPRAZOLE 40 MG/10 ML VIAL IV SCH (10:00)
[2017-07-02] MEDS: DOXYCYCLINE 100 MG TAB/CAP PO SCH (22:26)
[2017-07-02] MEDS: ATORVASTATIN 20 MG TAB PO SCH (22:26)
[2017-07-03] VITALS (8 sets, daily range): BP systolic 107–137; BP diastolic 56–98
[2017-07-03] MEDS: IPRATROPIUM BROM 0.5 MG/2.5ML INH SOL NEB SCH ×6 (02:15→22:40)
[2017-07-03] MEDS: NYSTATIN (MOUTH-THROAT) 500,000 UNITS/5 ML SUSP MT SCH ×4 (05:32→21:00)
[2017-07-03] MEDS: SODIUM CHLOR 0.9% PF (SALINE LOCK) 10ML VIAL IV SCH ×3 (05:32→21:01)
[2017-07-03 05:55] LABS: BUN/Creatinine Ratio 36.4; Calcium 8.3 mg/dL (8.5-10.1); Potassium 4.1 mmol/L (3.5-5.1)
[2017-07-03] MEDS: LEVOTHYROXINE SODIUM 25 MCG TAB NG SCH (06:31)
[2017-07-03] MEDS: predniSONE 20 MG TAB PO SCH (09:31)
[2017-07-03] MEDS: ENOXAPARIN SOD 30 MG/0.3 ML SYRINGE SC SCH (09:31)
[2017-07-03] MEDS: DOXYCYCLINE 100 MG TAB/CAP PO SCH ×2 (09:31→21:00)
[2017-07-03] MEDS: ASPirin 81 mg TAB PO SCH (09:31)
[2017-07-03] MEDS: PANTOPRAZOLE 40 MG TAB PO SCH (09:31)
[2017-07-03] MEDS: NICOTINE 14 MG/24HR TOPICAL PATCH TD SCH (10:17)
[2017-07-03] MEDS: LORazepam 2MG/ML-1ML VIAL IV PRN ×2 (15:10→21:38)
[2017-07-03] MEDS: ATORVASTATIN 20 MG TAB PO SCH (21:00)
[2017-07-04] VITALS: BP 134/90
[2017-07-04] MEDS: IPRATROPIUM BROM 0.5 MG/2.5ML INH SOL NEB SCH ×6 (02:12→22:21)
[2017-07-04] MEDS: LORazepam 2MG/ML-1ML VIAL IV PRN (03:31)
[2017-07-04 04:00] VITALS: BP 124/81
[2017-07-04 05:17] LABS: Basophils # (auto) 0 uL; Basophils % (auto) 0.3 % (0.0-2.0); Eosinophils # (auto) 0 uL; Hematocrit 51.7 % (41.0-53.0); Lymphocytes # (auto) 0.9 uL; Lymphocytes % (auto) 7.1 % (10.0-50.0); Mean Corpuscular Hemoglobin 32.1 pg (28.0-32.0); Mean Corpuscular Volume 97.6 fL (80.0-100.0); Monocytes # (auto) 1.1 uL; Monocytes % (auto) 8.7 % (0.0-12.0); Neutrophils # (auto) 10.1 uL; Neutrophils % (auto) 83.9 % (37.0-80.0); Nucleated Red Blood Cells % 0.3 %; Platelet Count (auto) 188 10^3/uL (140-450); Red Cell Distribution Width 15.1 % (11.8-14.3)
[2017-07-04 05:46] LABS: BUN/Creatinine Ratio 34.9; Calcium 8.4 mg/dL (8.5-10.1)
[2017-07-04] MEDS: SODIUM CHLOR 0.9% PF (SALINE LOCK) 10ML VIAL IV SCH ×3 (06:00→22:37)
[2017-07-04] MEDS: NYSTATIN (MOUTH-THROAT) 500,000 UNITS/5 ML SUSP MT SCH ×4 (06:00→22:37)
[2017-07-04] MEDS: LEVOTHYROXINE SODIUM 25 MCG TAB NG SCH (07:00)
[2017-07-04 11:53] VITALS: BP 123/97
[2017-07-04] MEDS: ENOXAPARIN SOD 30 MG/0.3 ML SYRINGE SC SCH (12:57)
[2017-07-04] MEDS: PANTOPRAZOLE 40 MG TAB PO SCH (12:58)
[2017-07-04] MEDS: DOXYCYCLINE 100 MG TAB/CAP PO SCH ×2 (13:10→22:38)
[2017-07-04] MEDS: ASPirin 81 mg TAB PO SCH (13:10)
[2017-07-04] MEDS: predniSONE 20 MG TAB PO SCH (13:10)
[2017-07-04 16:46] VITALS: BP 119/88
[2017-07-04] MEDS: NICOTINE 14 MG/24HR TOPICAL PATCH TD SCH (17:00)
[2017-07-04 20:00] VITALS: BP 130/74
[2017-07-04] MEDS: ATORVASTATIN 20 MG TAB PO SCH (22:37)
[2017-07-05] VITALS: BP 112/56
[2017-07-05] MEDS: IPRATROPIUM BROM 0.5 MG/2.5ML INH SOL NEB SCH ×5 (02:27→22:03)
[2017-07-05 04:00] VITALS: BP 149/71
[2017-07-05] MEDS: SODIUM CHLOR 0.9% PF (SALINE LOCK) 10ML VIAL IV SCH ×3 (05:41→23:17)
[2017-07-05] MEDS: NYSTATIN (MOUTH-THROAT) 500,000 UNITS/5 ML SUSP MT SCH ×4 (05:42→23:18)
[2017-07-05] MEDS: LEVOTHYROXINE SODIUM 25 MCG TAB NG SCH (05:42)
[2017-07-05] MEDS: ALBUTEROL SULF 2.5 MG/0.5ML(0.5%) NEB SOLN NEB SCH ×4 (06:50→22:02)
[2017-07-05 08:00] VITALS: BP 133/62
[2017-07-05] MEDS: predniSONE 20 MG TAB PO SCH (10:15)
[2017-07-05] MEDS: DOXYCYCLINE 100 MG TAB/CAP PO SCH ×2 (10:15→23:18)
[2017-07-05] MEDS: ASPirin 81 mg TAB PO SCH (10:15)
[2017-07-05] MEDS: PANTOPRAZOLE 40 MG TAB PO SCH (10:15)
[2017-07-05] MEDS: ENOXAPARIN SOD 30 MG/0.3 ML SYRINGE SC SCH (10:17)
[2017-07-05] MEDS: NICOTINE 14 MG/24HR TOPICAL PATCH TD SCH (11:20)
[2017-07-05 12:00] VITALS: BP 117/72
[2017-07-05 16:00] VITALS: BP 132/84
[2017-07-05] MEDS: DIGOXIN 0.25 MG TAB PO SCH ×2 (16:20→23:17)
[2017-07-05 21:40] VITALS: BP 126/69
[2017-07-05] MEDS: ATORVASTATIN 20 MG TAB PO SCH (23:18)
[2017-07-06] VITALS (7 sets, daily range): BP systolic 81–117; BP diastolic 55–73
[2017-07-06] MEDS: HALOPERIDOL LACTATE 5 MG/ML INJ VIAL IM PRN (01:43)
[2017-07-06] MEDS: IPRATROPIUM BROM 0.5 MG/2.5ML INH SOL NEB SCH ×6 (02:07→22:20)
[2017-07-06] MEDS ORDERED: DIGOXIN 0.25 MG TAB ONE (05:59)
[2017-07-06] MEDS: SODIUM CHLOR 0.9% PF (SALINE LOCK) 10ML VIAL IV SCH ×3 (06:08→21:12)
[2017-07-06] MEDS: NYSTATIN (MOUTH-THROAT) 500,000 UNITS/5 ML SUSP MT SCH ×4 (06:08→21:13)
[2017-07-06] MEDS: DIGOXIN 0.25 MG TAB PO SCH (06:08)
[2017-07-06] MEDS: LEVOTHYROXINE SODIUM 25 MCG TAB NG SCH (06:09)
[2017-07-06] MEDS: ALBUTEROL SULF 2.5 MG/0.5ML(0.5%) NEB SOLN NEB SCH ×4 (06:30→18:56)
[2017-07-06] MEDS: DOXYCYCLINE 100 MG TAB/CAP PO SCH ×2 (09:19→21:13)
[2017-07-06] MEDS: predniSONE 20 MG TAB PO SCH (09:20)
[2017-07-06] MEDS: PANTOPRAZOLE 40 MG TAB PO SCH (09:20)
[2017-07-06] MEDS: ASPirin 81 mg TAB PO SCH (09:20)
[2017-07-06] MEDS: ENOXAPARIN SOD 30 MG/0.3 ML SYRINGE SC SCH (09:21)
[2017-07-06] MEDS: NICOTINE 14 MG/24HR TOPICAL PATCH TD SCH (09:33)
[2017-07-06] MEDS: ATORVASTATIN 20 MG TAB PO SCH (21:13)
[2017-07-07] MEDS: IPRATROPIUM BROM 0.5 MG/2.5ML INH SOL NEB SCH ×3 (02:00→10:55)
[2017-07-07 05:07] VITALS: BP 157/90
[2017-07-07] MEDS: NYSTATIN (MOUTH-THROAT) 500,000 UNITS/5 ML SUSP MT SCH ×2 (05:57→11:08)
[2017-07-07] MEDS: LEVOTHYROXINE SODIUM 25 MCG TAB NG SCH (05:57)
[2017-07-07] MEDS: SODIUM CHLOR 0.9% PF (SALINE LOCK) 10ML VIAL IV SCH ×2 (06:19→13:07)
[2017-07-07] MEDS: ALBUTEROL SULF 2.5 MG/0.5ML(0.5%) NEB SOLN NEB SCH ×2 (06:58→10:55)
[2017-07-07 09:00] VITALS: BP 97/71
[2017-07-07] MEDS: NICOTINE 14 MG/24HR TOPICAL PATCH TD SCH (09:45)
[2017-07-07] MEDS: PANTOPRAZOLE 40 MG TAB PO SCH (09:46)
[2017-07-07] MEDS: DOXYCYCLINE 100 MG TAB/CAP PO SCH (09:46)
[2017-07-07] MEDS: ASPirin 81 mg TAB PO SCH (09:46)
[2017-07-07] MEDS ORDERED: DIGOXIN 0.125 MG TAB PO SCH (10:00)
[2017-07-07] MEDS ORDERED: predniSONE 20 MG TAB PO SCH (10:00)
[2017-07-07] MEDS ORDERED: ENOXAPARIN SOD 30 MG/0.3 ML SYRINGE SC SCH (10:00)
== END 2017-07-07 13:40 | DRG 870 ==
LOC: ER 05:57 → TELE 05:58 → ICU WEST 06-20 22:03 → ICU CENTRL 07-01 08:11 → DOU IN ICU 07-01 12:00 → TELE-EAST 07-05 16:29 → EAST 07-06 11:36
PROVIDERS: ADMIT Family Medicine; ATTEND Internal Medicine
PROC: 0BH18EZ Insertion of Endotracheal Airway into Trachea, Via Natural or Artificial Opening Endoscopic (ICD-10-PCS; principal; 2017-06-19)
PROC: 5A1955Z Respiratory Ventilation, Greater than 96 Consecutive Hours (ICD-10-PCS; 2017-06-19)
PROC: 5A09357 Assistance with Respiratory Ventilation, Less than 24 Consecutive Hours, Continuous Positive Airway Pressure (ICD-10-PCS; 2017-06-29)
DX: A41.3 Sepsis due to Hemophilus influenzae (principal); I21.A1 Myocardial infarction type 2; N17.0 Acute kidney failure with tubular necrosis; J96.22 Acute and chronic respiratory failure with hypercapnia; R65.21 Severe sepsis with septic shock; J18.9 Pneumonia, unspecified organism; G92 Toxic encephalopathy; E44.0 Moderate protein-calorie malnutrition; I50.43 Acute on chronic combined systolic (congestive) and diastolic (congestive) heart failure; J44.0 Chronic obstructive pulmonary disease with (acute) lower respiratory infection; I13.0 Hypertensive heart and chronic kidney disease with heart failure and stage 1 through stage 4 chronic kidney disease, or unspecified chronic kidney disease; J44.1 Chronic obstructive pulmonary disease with (acute) exacerbation; F03.90 Unspecified dementia, unspecified severity, without behavioral disturbance, psychotic disturbance, mood disturbance, and anxiety; B95.8 Unspecified staphylococcus as the cause of diseases classified elsewhere; E03.9 Hypothyroidism, unspecified; E66.01 Morbid (severe) obesity due to excess calories; F17.210 Nicotine dependence, cigarettes, uncomplicated; I25.10 Atherosclerotic heart disease of native coronary artery without angina pectoris; I25.2 Old myocardial infarction; I77.810 Thoracic aortic ectasia; N18.3 Chronic kidney disease, stage 3 (moderate); T50.2X5A Adverse effect of carbonic-anhydrase inhibitors, benzothiadiazides and other diuretics, initial encounter; Z79.82 Long term (current) use of aspirin; Z79.899 Other long term (current) drug therapy; Z68.24 Body mass index [BMI] 24.0-24.9, adult
CPT/HCPCS: 36415; 36600; 51702; 70450; 71010; 71020; 71045; 80048; 80053; 80061; 81001; 82805; 82962; 83605; 83735; 83880; 83935; 84300; 84443; 84484; 85025; 87040; 87070; 87077; 87081; 87186; 87205; 87400; 93005; 93306; 94002; 94003; 94640; 94660; 96372; 96374; 96375; 96376; 97116; 97163; 97530; 99291; A4565; C9113; J0330; J1956; J2250; J2405; J2704; J3010

== ENCOUNTER 2017-08-06 00:15 | Inpatient (IN) | payer MEDICARE ==
[~2017-08-06] VITALS: Ht 182.9 cm; Wt 82.5 kg
[2017-08-06 01:02] LABS: Basophils # (auto) 0.1 uL; Basophils % (auto) 0.6 % (0.0-2.0); Eosinophils # (auto) 0.1 uL; Eosinophils % (auto) 0.8 % (0.0-7.0); Hematocrit 48.1 % (41.0-53.0); Hemoglobin 15.3 g/dL (13.5-17.5); Lymphocytes # (auto) 1.3 uL; Lymphocytes % (auto) 11.2 % (10.0-50.0); Mean Corpuscular Hgb Conc. 31.9 g/dL (32.0-36.0); Mean Corpuscular Volume 100.4 fL (80.0-100.0); Monocytes # (auto) 1.3 uL; Monocytes % (auto) 11.6 % (0.0-12.0); Neutrophils # (auto) 8.5 uL; Neutrophils % (auto) 75.8 % (37.0-80.0); Nucleated Red Blood Cells % 0.4 %; Platelet Count (auto) 266 10^3/uL (140-450); Red Blood Cells 4.79 10^6/uL (4.5-5.90); Red Cell Distribution Width 18.2 % (11.8-14.3); White Blood Cell 11.3 10^3/uL (4.4-10.8)
[2017-08-06] MEDS ORDERED: FUROSEMIDE 20 MG/2 ML VIAL IV ONE (01:15)
[2017-08-06 01:38] LABS: Albumin 2.9 g/dL (3.4-5.0); BUN/Creatinine Ratio 22.9; Calcium 9.1 mg/dL (8.5-10.1); Magnesium 2.3 mg/dL (1.6-2.6); Potassium 5.4 mmol/L (3.5-5.1)
[2017-08-06 01:43] LABS: Bilirubin, Total 0.3 mg/dL (0.2-1.0)
[2017-08-06 02:18] LABS: Urine Bacteria NONE SEEN /hpf (None Seen); Urine Blood Negative /uL (Negative); Urine Hyaline Cast FEW /lpf (0 - 2); Urine Specific Gravity 1.012 (1.001-1.035); Urine Sperm PRESENT /hpf (None Seen); Urine WBC 1 /hpf (0 - 3)
[2017-08-06] MEDS ORDERED: NITROGLYCERIN 0.4 MG SL TAB SL PRN (04:15)
[2017-08-06] MEDS ORDERED: METOPROLOL TARTRATE 1MG/1ML-5ML VIAL IV ONE (04:15)
[2017-08-06] MEDS ORDERED: ONDANSETRON HCL 4 MG/2 ML VIAL IV PRN (04:15)
[2017-08-06] MEDS ORDERED: HYDROcodone-ACET 5/325MG TAB PO PRN (04:15)
[2017-08-06] MEDS ORDERED: ATORVASTATIN 20 MG TAB PO ONE (04:15)
[2017-08-06] MEDS ORDERED: ASPirin 81 mg TAB PO ONE (04:15)
[2017-08-06] MEDS ORDERED: ACETAMINOPHEN 325 MG TAB PO PRN (04:15)
[2017-08-06] MEDS ORDERED: DOCUSATE SOD 100 MG CAP PO PRN (04:15)
[2017-08-06] MEDS ORDERED: SODIUM POLYSTYRENE SULF 15GM/60ML SUSP PO ONE (04:15)
[2017-08-06] MEDS ORDERED: MORPHINE SULFATE 4 MG/ML SYR/VIAL IV PRN (04:15)
[2017-08-06] MEDS ORDERED: cloNIDine HCL 0.1 MG TAB PO PRN (04:15)
[2017-08-06] MEDS ORDERED: TEMAZEPAM 15 MG CAP PO PRN (04:15)
[2017-08-06] MEDS ORDERED: cefTRIAXone 1GM/10ml IVPUSH 10 ML IV ONE (05:00)
[2017-08-06 05:50] VITALS: BP 146/99
[2017-08-06] MEDS ORDERED: FUROSEMIDE 40 MG TAB PO SCH (06:00)
[2017-08-06 08:26] LABS: Alcohol, Urine < 3.0 mg/dL (0-5); Amphetamine Screen, Urine NEGATIVE (NEGATIVE); Barbiturate Scree,Urine NEGATIVE (NEGATIVE); Benzodiazephine Screen, Urine NEGATIVE (NEGATIVE); Cannabinoid Screen, Urine POSITIVE (NEGATIVE); Cocaine Screen, Urine NEGATIVE (NEGATIVE); Opiate Scree,Urine NEGATIVE (NEGATIVE); Phencyclidine Screen, Urine NEGATIVE (NEGATIVE)
[2017-08-06 08:30] VITALS: BP 149/70
[2017-08-06] MEDS: PANTOPRAZOLE 40 MG TAB PO SCH (09:50)
[2017-08-06] MEDS: CARVEDILOL 3.125 MG TAB PO SCH ×2 (09:52→22:18)
[2017-08-06] MEDS ORDERED: ENOXAPARIN SOD 30 MG/0.3 ML SYRINGE SC SCH (10:00)
[2017-08-06] MEDS: ENOXAPARIN SOD 40 MG/0.4 ML SYRINGE SC SCH (10:00)
[2017-08-06] MEDS ORDERED: hydrALAZINE HCL 25 MG TAB PO ONE (11:00)
[2017-08-06] MEDS ORDERED: ISOSORBIDE MONONITRATE 60 MG TAB PO ONE (11:00)
[2017-08-06] MEDS ORDERED: FUROSEMIDE 40 MG/4 ML VIAL IV ONE (11:00)
[2017-08-06 11:17] VITALS: BP 149/70
[2017-08-06 11:53] VITALS: BP 147/88
[2017-08-06 16:49] VITALS: BP 113/70
[2017-08-06 21:49] VITALS: BP 117/59
[2017-08-06] MEDS: hydrALAZINE HCL 25 MG TAB PO SCH (22:14)
[2017-08-06] MEDS: ATORVASTATIN 20 MG TAB PO SCH (22:14)
[2017-08-07 04:39] VITALS: BP 121/55
[2017-08-07 06:26] LABS: Basophils # (auto) 0 uL; Basophils % (auto) 0.5 % (0.0-2.0); Eosinophils # (auto) 0.1 uL; Eosinophils % (auto) 0.7 % (0.0-7.0); Hematocrit 43.1 % (41.0-53.0); Hemoglobin 14.3 g/dL (13.5-17.5); Lymphocytes # (auto) 0.9 uL; Mean Corpuscular Hemoglobin 32.8 pg (28.0-32.0); Mean Corpuscular Hgb Conc. 33.1 g/dL (32.0-36.0); Mean Corpuscular Volume 99.1 fL (80.0-100.0); Monocytes # (auto) 1.1 uL; Monocytes % (auto) 13.7 % (0.0-12.0); Neutrophils # (auto) 5.7 uL; Neutrophils % (auto) 73.1 % (37.0-80.0); Nucleated Red Blood Cells % 0.3 %; Platelet Count (auto) 229 10^3/uL (140-450); Red Blood Cells 4.34 10^6/uL (4.5-5.90); Red Cell Distribution Width 17.1 % (11.8-14.3); White Blood Cell 7.8 10^3/uL (4.4-10.8)
[2017-08-07 07:03] LABS: Albumin 2.5 g/dL (3.4-5.0); BUN/Creatinine Ratio 22.4; Calcium 8.3 mg/dL (8.5-10.1)
[2017-08-07 07:06] LABS: Bilirubin, Total 0.5 mg/dL (0.2-1.0)
[2017-08-07] MEDS ORDERED: ALBUTEROL SULF 2.5 MG/0.5ML(0.5%) NEB SOLN ONE (08:20)
[2017-08-07] MEDS ORDERED: IPRATROPIUM BROM 0.5 MG/2.5ML INH SOL ONE (08:20)
[2017-08-07] MEDS ORDERED: ADENOSINE 71 MG in GIVE UN-DILUTED 0 ML IV ONE (08:30)
[2017-08-07 09:00] VITALS: BP 128/88
[2017-08-07] MEDS: cefTRIAXone 1GM/10ml IVPUSH 10 ML IV SCH (09:00)
[2017-08-07] MEDS: ASPirin 81 mg TAB PO SCH (10:40)
[2017-08-07] MEDS: CARVEDILOL 3.125 MG TAB PO SCH ×2 (10:40→22:53)
[2017-08-07] MEDS: hydrALAZINE HCL 25 MG TAB PO SCH ×2 (10:40→22:52)
[2017-08-07] MEDS: ISOSORBIDE MONONITRATE 60 MG TAB PO SCH (10:40)
[2017-08-07] MEDS: FUROSEMIDE 40 MG/4 ML VIAL IV SCH (10:40)
[2017-08-07] MEDS: PANTOPRAZOLE 40 MG TAB PO SCH (10:40)
[2017-08-07] MEDS: ENOXAPARIN SOD 40 MG/0.4 ML SYRINGE SC SCH (10:40)
[2017-08-07 10:52] VITALS: BP 110/75
[2017-08-07] MEDS: ALBUTEROL SULF 2.5 MG/0.5ML(0.5%) NEB SOLN NEB PRN (10:57)
[2017-08-07 13:00] VITALS: BP 115/65
[2017-08-07 17:00] VITALS: BP 130/81
[2017-08-07 22:32] VITALS: BP 109/56
[2017-08-07] MEDS: ATORVASTATIN 20 MG TAB PO SCH (22:52)
[2017-08-08 05:01] VITALS: BP 108/78
[2017-08-08 06:16] LABS: BUN/Creatinine Ratio 25.4; Calcium 8.2 mg/dL (8.5-10.1); Potassium 4.1 mmol/L (3.5-5.1)
[2017-08-08 08:00] VITALS: BP 116/77
[2017-08-08] MEDS: hydrALAZINE HCL 25 MG TAB PO SCH ×2 (10:00→21:29)
[2017-08-08] MEDS: ISOSORBIDE MONONITRATE 60 MG TAB PO SCH (10:00)
[2017-08-08] MEDS: ASPirin 81 mg TAB PO SCH (10:17)
[2017-08-08] MEDS: cefTRIAXone 1GM/10ml IVPUSH 10 ML IV SCH (10:17)
[2017-08-08] MEDS: FUROSEMIDE 40 MG/4 ML VIAL IV SCH (10:17)
[2017-08-08] MEDS: CARVEDILOL 3.125 MG TAB PO SCH ×2 (10:18→21:34)
[2017-08-08] MEDS: PANTOPRAZOLE 40 MG TAB PO SCH (10:18)
[2017-08-08 12:00] VITALS: BP 107/56
[2017-08-08 16:00] VITALS: BP 137/62
[2017-08-08] MEDS: ATORVASTATIN 20 MG TAB PO SCH (21:33)
[2017-08-08 21:49] VITALS: BP 126/64
[2017-08-09 04:32] VITALS: BP 133/66
[2017-08-09] MEDS: ALBUTEROL SULF 2.5 MG/0.5ML(0.5%) NEB SOLN NEB PRN (06:47)
[2017-08-09 07:26] VITALS: BP 133/71
[2017-08-09] MEDS: ISOSORBIDE MONONITRATE 60 MG TAB PO SCH (10:00)
[2017-08-09] MEDS: hydrALAZINE HCL 25 MG TAB PO SCH ×2 (10:00→21:42)
[2017-08-09] MEDS: FUROSEMIDE 40 MG/4 ML VIAL IV SCH (10:17)
[2017-08-09] MEDS: CARVEDILOL 3.125 MG TAB PO SCH ×2 (10:18→21:43)
[2017-08-09] MEDS: ASPirin 81 mg TAB PO SCH (10:18)
[2017-08-09] MEDS: PANTOPRAZOLE 40 MG TAB PO SCH (10:18)
[2017-08-09] MEDS: cefTRIAXone 1GM/10ml IVPUSH 10 ML IV SCH (11:30)
[2017-08-09 11:48] VITALS: BP 105/78
[2017-08-09 17:01] VITALS: BP 124/70
[2017-08-09 21:32] VITALS: BP 121/70
[2017-08-09] MEDS: ATORVASTATIN 20 MG TAB PO SCH (21:44)
[2017-08-10 04:31] VITALS: BP 133/64
[2017-08-10 09:00] VITALS: BP 136/84
[2017-08-10] MEDS: ASPirin 81 mg TAB PO SCH (11:30)
[2017-08-10] MEDS: cefTRIAXone 1GM/10ml IVPUSH 10 ML IV SCH (11:30)
[2017-08-10] MEDS: hydrALAZINE HCL 25 MG TAB PO SCH (11:31)
[2017-08-10] MEDS: CARVEDILOL 3.125 MG TAB PO SCH (11:33)
[2017-08-10] MEDS: FUROSEMIDE 40 MG/4 ML VIAL IV SCH (11:34)
[2017-08-10] MEDS: PANTOPRAZOLE 40 MG TAB PO SCH (11:35)
[2017-08-10] MEDS: ISOSORBIDE MONONITRATE 60 MG TAB PO SCH (11:35)
[2017-08-10 12:01] VITALS: BP 136/84
[2017-08-10 12:10] VITALS: BP 136/84
[2017-08-10 13:00] VITALS: BP 111/78
== END 2017-08-10 13:23 | disposition home or self-care (01) | DRG 291 ==
LOC: ER 00:24 → TELE 00:25 → TELE-EAST 05:30
PROVIDERS: ADMIT Nurse Practitioner; ATTEND Internal Medicine
DX: I13.0 Hypertensive heart and chronic kidney disease with heart failure and stage 1 through stage 4 chronic kidney disease, or unspecified chronic kidney disease (principal); J96.00 Acute respiratory failure, unspecified whether with hypoxia or hypercapnia; I50.43 Acute on chronic combined systolic (congestive) and diastolic (congestive) heart failure; J44.1 Chronic obstructive pulmonary disease with (acute) exacerbation; E44.0 Moderate protein-calorie malnutrition; I25.5 Ischemic cardiomyopathy; I25.10 Atherosclerotic heart disease of native coronary artery without angina pectoris; N18.3 Chronic kidney disease, stage 3 (moderate); F17.210 Nicotine dependence, cigarettes, uncomplicated; I25.2 Old myocardial infarction; Z82.49 Family history of ischemic heart disease and other diseases of the circulatory system; Z79.899 Other long term (current) drug therapy; Z79.82 Long term (current) use of aspirin; Z86.73 Personal history of transient ischemic attack (TIA), and cerebral infarction without residual deficits; Z91.14 Patient's other noncompliance with medication regimen; Z68.24 Body mass index [BMI] 24.0-24.9, adult
CPT/HCPCS: 36415; 70450; 71045; 78452; 80048; 80053; 80307; 80320; 81001; 83735; 83880; 84484; 85025; 87081; 93005; 93017; 94640; 96374; 96375; J0153

== ENCOUNTER 2017-11-08 22:22 | Inpatient (IN) | payer MEDICARE ==
[~2017-11-08] VITALS: Ht 182.9 cm; Wt 69.6 kg
[2017-11-08 22:55] LABS: Eosinophils % (auto) 1.3 % (0.0-7.0); Lymphocytes # (auto) 1.3 uL; Red Cell Distribution Width 15.3 % (11.8-14.3)
[2017-11-08 22:57] LABS: Basophils # (auto) 0 uL; Basophils % (auto) 0.4 % (0.0-2.0); Eosinophils # (auto) 0.1 uL; Hematocrit 52.7 % (41.0-53.0); Hemoglobin 17.6 g/dL (13.5-17.5); Lymphocytes % (auto) 12.2 % (10.0-50.0); Mean Corpuscular Hemoglobin 32.8 pg (28.0-32.0); Mean Corpuscular Hgb Conc. 33.3 g/dL (32.0-36.0); Mean Corpuscular Volume 98.6 fL (80.0-100.0); Monocytes # (auto) 1.7 uL; Neutrophils # (auto) 7.8 uL; Neutrophils % (auto) 71.1 % (37.0-80.0); Nucleated Red Blood Cells % 0.2 %; Platelet Count (auto) 215 10^3/uL (140-450); Red Blood Cells 5.35 10^6/uL (4.5-5.90)
[2017-11-08 23:08] LABS: INR 1.2 (0.9-1.15); Partial Thromboplastin Time 26.5 sec (23.78-33.04); Prothrombin Time 12.7 sec (9.27-12.13)
[2017-11-08 23:10] LABS: Albumin 3.4 g/dL (3.4-5.0); BUN/Creatinine Ratio 18.3; Calcium 8.9 mg/dL (8.5-10.1); Magnesium 1.9 mg/dL (1.6-2.6); Potassium 4.1 mmol/L (3.5-5.1)
[2017-11-08 23:15] LABS: Bilirubin, Total 0.4 mg/dL (0.2-1.0); Total Protein 7.8 g/dL (6.4-8.2)
[2017-11-08] MEDS ORDERED: LEVOFLOXACIN 500MG 100 ML IV ONE (23:30)
[2017-11-08] MEDS ORDERED: IPRATROPIUM BROM 0.5 MG/2.5ML INH SOL NEB ONE (23:30)
[2017-11-08] MEDS ORDERED: ALBUTEROL SULF 2.5 MG/0.5ML(0.5%) NEB SOLN NEB ONE (23:30)
[2017-11-08] MEDS ORDERED: methylPREDNISolone SOD SUCC 125 MG/2 ML VL IV ONE (23:30)
[2017-11-09] MEDS ORDERED: ISOS60TA24 PO (00:06)
[2017-11-09] MEDS ORDERED: HYDR50TA15 PO (00:06)
[2017-11-09] MEDS ORDERED: CARV3.1240 PO (00:06)
[2017-11-09] MEDS ORDERED: ASP81EC PO (00:06)
[2017-11-09] MEDS ORDERED: ATOR20TA50 PO (00:06)
[2017-11-09] MEDS ORDERED: FURO40TA4 PO (00:06)
[2017-11-09] MEDS ORDERED: FUROSEMIDE 20 MG/2 ML VIAL IV ONE (05:30)
[2017-11-09] MEDS ORDERED: ONDANSETRON HCL 4 MG/2 ML VIAL IV PRN (08:00)
[2017-11-09] MEDS ORDERED: DOXYCYCLINE 100MG/250ML 250 ML IV ONE (08:00)
[2017-11-09] MEDS ORDERED: HYDROcodone-ACET 5/325MG TAB PO PRN (08:00)
[2017-11-09] MEDS ORDERED: ACETAMINOPHEN 500 MG TAB PO PRN (08:00)
[2017-11-09 09:02] LABS: Basophils # (auto) 0 uL; Eosinophils # (auto) 0 uL; Mean Corpuscular Volume 98.9 fL (80.0-100.0); Monocytes # (auto) 0.1 uL
[2017-11-09 09:04] LABS: Basophils % (auto) 0.1 % (0.0-2.0); Eosinophils % (auto) 0.1 % (0.0-7.0); Hematocrit 55.5 % (41.0-53.0); Hemoglobin 18.5 g/dL (13.5-17.5); Lymphocytes # (auto) 0.3 uL; Lymphocytes % (auto) 4.9 % (10.0-50.0); Mean Corpuscular Hemoglobin 32.9 pg (28.0-32.0); Mean Corpuscular Hgb Conc. 33.3 g/dL (32.0-36.0); Neutrophils % (auto) 93.9 % (37.0-80.0); Nucleated Red Blood Cells % 0.1 %; Red Blood Cells 5.61 10^6/uL (4.5-5.90); Red Cell Distribution Width 15.4 % (11.8-14.3); White Blood Cell 6.4 10^3/uL (4.4-10.8)
[2017-11-09 09:06] VITALS: BP 118/68
[2017-11-09 09:11] LABS: Platelet Count (auto) 226 10^3/uL (140-450)
[2017-11-09 09:24] LABS: BUN/Creatinine Ratio 18.6; Calcium 9.2 mg/dL (8.5-10.1); Potassium 4.7 mmol/L (3.5-5.1)
[2017-11-09] MEDS: hydrALAZINE HCL 25 MG TAB PO SCH ×2 (09:55→21:24)
[2017-11-09] MEDS: CARVEDILOL 3.125 MG TAB PO SCH ×2 (09:55→21:24)
[2017-11-09] MEDS: FUROSEMIDE 40 MG TAB PO SCH (09:55)
[2017-11-09] MEDS: ASPirin-EC 81 mg tab PO SCH (10:40)
[2017-11-09] MEDS: ISOSORBIDE MONONITRATE 60 MG TAB PO SCH (10:40)
[2017-11-09] MEDS: ALBUTEROL SULF 2.5 MG/0.5ML(0.5%) NEB SOLN NEB PRN ×2 (11:40→18:46)
[2017-11-09] MEDS: IPRATROPIUM BROM 0.5 MG/2.5ML INH SOL NEB SCH ×2 (11:40→18:46)
[2017-11-09 16:28] VITALS: BP 107/70
[2017-11-09 17:07] VITALS: BP 107/70
[2017-11-09] MEDS: ATORVASTATIN 20 MG TAB PO SCH (21:24)
[2017-11-09 22:00] VITALS: BP 96/59
[2017-11-10] MEDS: ALBUTEROL SULF 2.5 MG/0.5ML(0.5%) NEB SOLN NEB PRN (00:29)
[2017-11-10] MEDS: IPRATROPIUM BROM 0.5 MG/2.5ML INH SOL NEB SCH ×2 (00:29→19:16)
[2017-11-10 05:00] VITALS: BP 116/71
[2017-11-10 07:07] LABS: Basophils # (auto) 0 uL; Basophils % (auto) 0.2 % (0.0-2.0); Eosinophils # (auto) 0 uL; Hematocrit 48.1 % (41.0-53.0); Hemoglobin 16.1 g/dL (13.5-17.5); Lymphocytes # (auto) 1.1 uL; Mean Corpuscular Hemoglobin 33.1 pg (28.0-32.0); Mean Corpuscular Hgb Conc. 33.5 g/dL (32.0-36.0); Mean Corpuscular Volume 98.9 fL (80.0-100.0); Monocytes # (auto) 1.4 uL; Monocytes % (auto) 10.9 % (0.0-12.0); Neutrophils # (auto) 10.8 uL; Neutrophils % (auto) 80.9 % (37.0-80.0); Nucleated Red Blood Cells % 0.1 %; Platelet Count (auto) 199 10^3/uL (140-450); Red Blood Cells 4.87 10^6/uL (4.5-5.90); White Blood Cell 13.3 10^3/uL (4.4-10.8)
[2017-11-10 07:35] LABS: BUN/Creatinine Ratio 24.4; Bilirubin, Total 0.3 mg/dL (0.2-1.0); Calcium 8.8 mg/dL (8.5-10.1); Potassium 4.3 mmol/L (3.5-5.1); Total Protein 6.8 g/dL (6.4-8.2)
[2017-11-10 08:29] VITALS: BP 100/57
[2017-11-10] MEDS: ASPirin-EC 81 mg tab PO SCH (09:29)
[2017-11-10] MEDS: ISOSORBIDE MONONITRATE 60 MG TAB PO SCH (09:29)
[2017-11-10] MEDS: FUROSEMIDE 40 MG TAB PO SCH (10:00)
[2017-11-10] MEDS: CARVEDILOL 3.125 MG TAB PO SCH ×2 (10:00→21:22)
[2017-11-10] MEDS: hydrALAZINE HCL 25 MG TAB PO SCH ×2 (10:00→21:22)
[2017-11-10 12:54] VITALS: BP 107/63
[2017-11-10] MEDS: APIXABAN 5 MG TAB PO SCH ×2 (15:22→21:23)
[2017-11-10 16:12] LABS: Urine Bacteria NONE SEEN /hpf (None Seen); Urine Blood Negative /uL (Negative); Urine Specific Gravity 1.021 (1.001-1.035); Urine WBC 4 /hpf (0 - 3)
[2017-11-10 16:26] VITALS: BP 132/78
[2017-11-10] MEDS: BOOST PLUS 8 ounce PO SCH (18:25)
[2017-11-10] MEDS: ATORVASTATIN 20 MG TAB PO SCH (21:23)
[2017-11-10 22:00] VITALS: BP 113/71
[2017-11-11] MEDS: IPRATROPIUM BROM 0.5 MG/2.5ML INH SOL NEB SCH ×3 (01:11→11:55)
[2017-11-11 05:00] VITALS: BP 102/63
[2017-11-11 06:38] LABS: Basophils # (auto) 0 uL; Basophils % (auto) 0.5 % (0.0-2.0); Eosinophils # (auto) 0 uL; Eosinophils % (auto) 0.4 % (0.0-7.0); Hematocrit 48.8 % (41.0-53.0); Hemoglobin 16.3 g/dL (13.5-17.5); Lymphocytes # (auto) 1.4 uL; Lymphocytes % (auto) 16.1 % (10.0-50.0); Mean Corpuscular Hemoglobin 33.4 pg (28.0-32.0); Mean Corpuscular Hgb Conc. 33.4 g/dL (32.0-36.0); Mean Corpuscular Volume 100.1 fL (80.0-100.0); Monocytes # (auto) 1.1 uL; Monocytes % (auto) 12.8 % (0.0-12.0); Neutrophils # (auto) 6.1 uL; Neutrophils % (auto) 70.2 % (37.0-80.0); Platelet Count (auto) 191 10^3/uL (140-450); Red Blood Cells 4.87 10^6/uL (4.5-5.90); Red Cell Distribution Width 15.2 % (11.8-14.3); White Blood Cell 8.7 10^3/uL (4.4-10.8)
[2017-11-11 06:52] LABS: Calcium 8.7 mg/dL (8.5-10.1)
[2017-11-11 06:55] LABS: BUN/Creatinine Ratio 30.2
[2017-11-11 06:57] LABS: Bilirubin, Total 0.3 mg/dL (0.2-1.0); Total Protein 6.8 g/dL (6.4-8.2)
[2017-11-11] MEDS: BOOST PLUS 8 ounce PO SCH ×2 (08:44→13:30)
[2017-11-11 09:00] VITALS: BP 110/76
[2017-11-11] MEDS: ASPirin-EC 81 mg tab PO SCH (09:39)
[2017-11-11] MEDS: APIXABAN 5 MG TAB PO SCH (09:39)
[2017-11-11] MEDS: ISOSORBIDE MONONITRATE 60 MG TAB PO SCH (09:40)
[2017-11-11] MEDS: hydrALAZINE HCL 25 MG TAB PO SCH (10:00)
[2017-11-11] MEDS: FUROSEMIDE 40 MG TAB PO SCH (10:00)
[2017-11-11] MEDS: CARVEDILOL 3.125 MG TAB PO SCH (10:00)
[2017-11-11 11:01] VITALS: BP 110/76
[2017-11-11 13:00] VITALS: BP 94/55
[2017-11-17] MEDS ORDERED: APIXABAN 5 MG TAB PO SCH (10:00)
== END 2017-11-11 13:20 | disposition home or self-care (01) | DRG 291 ==
LOC: ER 22:22 → TELE 22:23 → TELE-WESTW 11-09 16:14
PROVIDERS: ADMIT Nurse Practitioner Family; ATTEND Internal Medicine
DX: I13.0 Hypertensive heart and chronic kidney disease with heart failure and stage 1 through stage 4 chronic kidney disease, or unspecified chronic kidney disease (principal); I50.33 Acute on chronic diastolic (congestive) heart failure; I26.99 Other pulmonary embolism without acute cor pulmonale; J44.0 Chronic obstructive pulmonary disease with (acute) lower respiratory infection; E44.0 Moderate protein-calorie malnutrition; J44.1 Chronic obstructive pulmonary disease with (acute) exacerbation; J45.901 Unspecified asthma with (acute) exacerbation; R65.10 Systemic inflammatory response syndrome (SIRS) of non-infectious origin without acute organ dysfunction; N18.3 Chronic kidney disease, stage 3 (moderate); F17.210 Nicotine dependence, cigarettes, uncomplicated; I25.10 Atherosclerotic heart disease of native coronary artery without angina pectoris; J20.9 Acute bronchitis, unspecified; R79.1 Abnormal coagulation profile; R74.8 Abnormal levels of other serum enzymes; Z68.20 Body mass index [BMI] 20.0-20.9, adult; Z82.49 Family history of ischemic heart disease and other diseases of the circulatory system
CPT/HCPCS: 36415; 36600; 71045; 78582; 80048; 80053; 81001; 82805; 83735; 83880; 84443; 84484; 85025; 85379; 85610; 85730; 87086; 93005; 93970; 94640; 96365; 96367; 96375; J1956; J3490